=== PATIENT | female | born 1980 | race Caucasian/White ===

== ENCOUNTER 2016-11-17 21:45 | Emergency (ER) | payer SELFPAY ==
[~2016-11-17] VITALS: Ht 162.6 cm; Wt 56.0 kg
[2016-11-17 21:50] VITALS: BP 133/80; PULSE 101; RESP 14; TEMP 98.1; O2SAT 100
--- NOTE | 2016-11-17 21:59 | PD ---
HPI Chief Complaint: Altered Mental Status Time Seen by Provider: 21:49 Travel History International Travel<30 days: No Contact w/Intl Traveler<30days: No History of Present Illness HPI The patient is a 36 year old female who presents to the [facility] emergency department with a history of altered mental status noted by a friend that she was talking to on the phone prior to arrival. The friend called ambulance services and upon their arrival the patient was noted to be crouching in a corner. The patient was disoriented and appeared to be hallucinating. The patient had a generator that was on and noted to be nearby in the backyard. The patient is oriented to person, however otherwise not oriented to time, place, or situation. She denies drinking any alcohol or using any drugs. The patient's blood sugar was noted prior to arrival to be 103. The patient is able to state her name, however when she is asked other questions she answers that she knows the answer, however she will not answer the questions specifically to give an example when asked where she is currently located she says yes she knows, however she will not state where. Orientation questioning is limited as the patient is unable or is refusing to answer questions. LMP: Reportedly started today. PFSH Past Medical History Narrative Medical the patient's past medical history is reportedly none. Past Surgical History Narrative Surgical The patient's past surgical history is reportedly none. Social History Alcohol Use: No Tobacco Use: No Substance Use: No Allergies-Medications (Allergen,Severity, Reaction): Coded Allergies: No Known Allergies (Unverified , 11/17/16) Reported Meds & Prescriptions Reported Meds & Active Scripts Active No Active Prescriptions or Reported Medications Narrative Medication The patient denies taking any medications Review of Systems ROS Limitations: Poor Historian Neurologic: Positive: Change in Mentation Physical Exam Narrative General: The patient is well-developed well-nourished female in no acute distress Head and Neck exam: Head is normocephalic atraumatic. Eyes: EOMI, pupils are equal round and reactive to light. Nose: Midline septum with pink mucous membranes Mouth: Dentition unremarkable. Moist mucus membranes. Posterior oropharynx is not erythematous. No tonsillar hypertrophy. Uvula midline. Airway patent. Neck: No palpable lymphadenopathy. No nuchal rigidity. No thyromegaly. Cardiovascular: Sinus tachycardia in the low 100 without murmurs, gallops, or rubs. No pulse deficit to the extremities on simultaneous auscultation and palpation of her radial artery. Lungs: Clear to auscultation bilaterally. No wheezes, rhonchi, or rales. Abdomen: Soft, without tenderness to palpation in all 4 quadrants of the abdomen. No guarding, rebound, or rigidity. Normal bowel sounds are audible. No tenderness on palpation of McBurney's point. Extremities: No clubbing, cyanosis, or edema. 2+ pulses in all 4 extremities. No calf tenderness on palpation. Back: No spinous process tenderness to palpation. No costovertebral angle tenderness to palpation. Neurologic Exam: Cranial nerves 2-12 were intact on exam. Strength is 5/5 in all 4 extremities. No sensory deficits noted. Skin Exam: No rash noted. Intact skin that is warm and dry. Data Data Last Documented VS Vital Signs Date Time Temp Pulse Resp B/P (MAP) Pulse Ox O2 Delivery O2 Flow Rate FiO2 11/17/16 23:48 90 107/57 (74) 92 11/17/16 22:02 15 Non-Rebreather 15.00 11/17/16 21:50 98.1 Orders Orders Electrocardiogram (11/17/16 21:49) Complete Blood Count With Diff (11/17/16 21:49) Comprehensive Metabolic Panel (11/17/16 21:49) Lipase (11/17/16 21:49) Urinalysis - C+S If Indicated (11/17/16 21:49) Magnesium (Mg) (11/17/16 21:49) Ammonia (11/17/16 21:49) Thyroid Stimulating Hormone (11/17/16 21:49) Chest, Single Ap (11/17/16 21:49) Iv Access Insert/Monitor (11/17/16 21:49) Ecg Monitoring (11/17/16 21:49) Oximetry (11/17/16 21:49) Ed Urine Pregnancytest Poc (11/17/16 21:49) Drug Screen, Random Urine (11/17/16 21:49) Alcohol (Ethanol) (11/17/16 21:49) Salicylates (Aspirin) (11/17/16 21:49) Tylenol (Acetaminophen) (11/17/16 21:49) Ct Brain W/O Iv Contrast(Rout) (11/17/16 21:49) Prothrombin Time / Inr (Pt) (11/17/16 21:51) Act Partial Throm Time (Ptt) (11/17/16 21:51) Blood Gas Venous (Vbg) (11/17/16 21:45) Arterial Blood Gas (Abg) (11/17/16 22:45) Lorazepam Inj (Ativan Inj) (11/18/16 00:00) Labs Laboratory Tests Test 11/17/16 21:45 11/17/16 21:50 11/17/16 22:12 11/17/16 22:45 Blood Gas Puncture Site BY RN RT RADIAL Blood Gas Patient Temperature 98.6 98.6 Venous Blood pH 7.35 Venous Blood Partial Pressure CO2 46 mmHg Venous Blood Partial Pressure O2 28 mmHg Venous Blood HCO3 24 mmol/L Venous Blood Oxygen Saturation 44 % Venous Blood Oxygen Content 9.1 Vol % Venous Blood Base Excess -0.4 mmol/L Oxygen Delivery Device ROOM AIR ROOM AIR Blood Gas Inspired Oxygen 21 % 21 % White Blood Count 11.7 TH/MM3 Red Blood Count 4.65 MIL/MM3 Hemoglobin 15.5 GM/DL Hematocrit 44.1 % Mean Corpuscular Volume 94.9 FL Mean Corpuscular Hemoglobin 33.3 PG Mean Corpuscular Hemoglobin Concent 35.1 % Red Cell Distribution Width 13.3 % Platelet Count 339 TH/MM3 Mean Platelet Volume 7.4 FL Neutrophils (%) (Auto) 71.6 % Lymphocytes (%) (Auto) 23.8 % Monocytes (%) (Auto) 3.7 % Eosinophils (%) (Auto) 0.5 % Basophils (%) (Auto) 0.4 % Neutrophils # (Auto) 8.4 TH/MM3 Lymphocytes # (Auto) 2.8 TH/MM3 Monocytes # (Auto) 0.4 TH/MM3 Eosinophils # (Auto) 0.1 TH/MM3 Basophils # (Auto) 0.0 TH/MM3 CBC Comment DIFF FINAL Differential Comment Prothrombin Time 10.3 SEC Prothromb Time International Ratio 0.9 RATIO Activated Partial Thromboplast Time 29.6 SEC Blood Urea Nitrogen 11 MG/DL Creatinine 0.75 MG/DL Random Glucose 94 MG/DL Total Protein 7.9 GM/DL Albumin 4.3 GM/DL Calcium Level 8.5 MG/DL Magnesium Level 2.6 MG/DL Alkaline Phosphatase 69 U/L Aspartate Amino Transf (AST/SGOT) 26 U/L Alanine Aminotransferase (ALT/SGPT) 44 U/L Total Bilirubin 0.2 MG/DL Sodium Level 143 MEQ/L Potassium Level 3.8 MEQ/L Chloride Level 109 MEQ/L Carbon Dioxide Level 25.7 MEQ/L Anion Gap 8 MEQ/L Estimat Glomerular Filtration Rate 88 ML/MIN Ammonia 25 MCMOL/L Lipase 137 U/L Thyroid Stimulating Hormone 3rd Gen 1.380 uIU/ML Salicylates Level LESS THAN 1.7 MG/DL Acetaminophen Level LESS THAN 2.0 MCG/ML Ethyl Alcohol Level 317 MG/DL Urine Color COLORLESS Urine Turbidity CLEAR Urine pH 5.0 Urine Specific [place] 1.002 Urine Protein NEG mg/dL Urine Glucose (UA) NEG mg/dL Urine Ketones NEG mg/dL Urine Occult Blood NEG Urine Nitrite NEG Urine Bilirubin NEG Urine Urobilinogen LESS THAN 2.0 MG/DL Urine Leukocyte Esterase NEG Urine WBC LESS THAN 1 /hpf Urine Squamous Epithelial Cells <1 /hpf Urine Hyaline Casts 1 /lpf Microscopic Urinalysis Comment CULT NOT INDICATED Urine Opiates Screen NEG Urine Barbiturates Screen NEG Urine Amphetamines Screen NEG Urine Benzodiazepines Screen NEG Urine Cocaine Screen NEG Urine Cannabinoids Screen NEG Blood Gas HCO3 22 mmol/L Blood Gas Base Excess -2.9 mmol/L Blood Gas Oxygen Saturation 85 % Arterial Blood pH 7.36 Arterial Blood Partial Pressure CO2 40 mmHg Arterial Blood Partial Pressure O2 60 mmHG Arterial Blood Oxygen Content 17.8 Vol % Arterial Blood Carboxyhemoglobin 3.3 % Arterial Blood Methemoglobin 0.8 % Blood Gas Hemoglobin 15.0 G/DL MDM Medical Decision Making Medical Screen Exam Complete: Yes Emergency Medical Condition: Yes Medical Record Reviewed: Yes Interpretation(s) Last Impressions Head CT 11/17/162148 Signed Impressions: Service Date/Time: Friday, November 18, 2016 00:33 - CONCLUSION: Normal examination for a patient of this age. Orlin Coelho MD Chest X-Ray 11/17/162148 Signed Impressions: Service Date/Time: Thursday, November 17, 2016 22:16 - CONCLUSION: Mild infiltrate and pleural effusion of the right base. Hakan Pardo MD Differential Diagnosis Carbon monoxide toxicity, versus altered mentation related to drug ingestion, versus withdrawal syndrome, versus psychiatric disorder, versus metabolic encephalopathy, versus intracranial abnormality Narrative Course During the course of the patients emergency department visit, the patients history, examination, and differential diagnosis were reviewed with the patient. The patient had IV access obtained and blood work sent for analysis. The patient was placed on a cardiac rn with oximetry and blood pressure monitoring. An ECG was done on arrival. The patient's ECG shows a sinus tachycardia rate of 102, no acute ST segment elevation or depression. T waves are inverted in V1, QRS duration is 89 ms, QTC 396 ms. An ABG was ordered. The patient was initially provided normal saline 1 L IV fluid bolus. The patient was given Ativan 1 mg IV for agitation in order to complete her CT scan of the brain. The patients laboratory studies were reviewed and remarkable for a white count 11.7, hemoglobin 15.5, platelets 339, neutrophils 71.6, ABG reveals a carboxyhemoglobin of 3.3 therefore carbon monoxide toxicity has been ruled out. CMP is remarkable for chloride of 109, GFR of 88, magnesium 2.6, lipase 137, TSH 1.38, ammonia level XXV. PT PTT within normal limits, urine drug screen is negative, salicylate less than 1.7, acetaminophen less than 2, alcohol level CCCXVII, urinalysis is unremarkable. Radiology studies were reviewed and remarkable for a chest x-ray that shows atelectasis at the right lung base. CT scan of the brain shows a normal examination for a patient of this age. The patient will be observed in the emergency department until she has improvement of mentation and is able to walk without assistance. The patient is acutely intoxicated with alcohol. The patient on discharge will be instructed to avoid heavy alcohol use. The patient is resting comfortably and feels better, is alert and in no distress. The patients results and examination findings were discussed with the patient. The repeat examination is unremarkable and benign. The history, exam, diagnostic testing, and current condition do not suggest any significant pathology to warrant further testing, continued ED treatment, admission, or surgical evaluation at this point. The vital signs have been stable. The patient does not have uncontrollable pain, intractable vomiting, or other significant symptoms. The patient's condition is stable and appropriate for discharge. The patient will pursue further outpatient evaluation with a primary care physician or other designated or consulting physician as indicated in the discharge instructions. The patient expressed understanding and was agreeable with this plan. Diagnosis Primary Impression: Altered mental status Qualified Codes: R41.0 - Disorientation, unspecified Additional Impression: Alcohol intoxication Qualified Codes: F10.929 - Alcohol use, unspecified with intoxication, unspecified Referrals: Primary Care Physician 2 days Patient Instructions: Alcohol Intoxication (ED), General Instructions Additional Instructions: Avoid alcohol use Med/Other Pt SpecificInfo: No Change to Meds Scripts No Active Prescriptions or Reported Meds Disposition: 01 DISCHARGE HOME Condition: Stable Lianne Nguyen MD Nov 17, 2016 21:59
[2016-11-17 22:00] LABS: BLOOD GAS VENOUS BASE EXCESS -0.4 mmol/L (-2-2); BLOOD GAS VENOUS HCO3 24 mmol/L (22-26); BLOOD GAS VENOUS O2 CONTENT 9.1 Vol % (9.0-17.0); BLOOD GAS VENOUS O2 HGB SAT 44 % (70-76); BLOOD GAS VENOUS PCO2 46 mmHg (44-48); BLOOD GAS VENOUS PO2 28 mmHg (35-40); BLOOD GAS VENOUS pH 7.35 (7.360-7.400); CRITICAL VALUE YES; TEMP CORR TO 98.6
[2016-11-17 22:01] LABS: FIO2 21 %; OXYGEN DEVICE ROOM AIR; STAT YES
[2016-11-17 22:02] VITALS: RESP 15; O2SAT 100
[2016-11-17 22:33] LABS: BLOOD, URINE NEG (NEG); GLUCOSE,URINE NEG (NEG); HYALINE CAST, URINE 1 /lpf (RARE); KETONE, URINE NEG (NEG); NITRITE,URINE NEG (NEG); SQUAMOUS EPITHELIAL CELL URINE <1 /hpf (0-5); URINE COLOR COLORLESS (YELLW/STRAW)
[2016-11-17 22:34] LABS: COMMENT (UR) CULT NOT INDICATED; CULTURE IF INDICATED CULT NOT INDICATED
[2016-11-17 22:37] LABS: HEMATOCRIT 44.1 % (35.0-46.0); HEMO FLAGS DIFF FINAL; LYMPH % 23.8 % (9.0-44.0); MEAN CELL VOLUME 94.9 FL (80.0-100.0); MEAN CORPUSCULAR HEMOGLOBIN 33.3 PG (27.0-34.0); MEAN CORPUSCULAR HGB CONC 35.1 % (32.0-36.0); MONO % 3.7 % (0.0-8.0); NEUT % 71.6 % (16.0-70.0); PLATELET COUNT 339 TH/MM3 (150-450); RED BLOOD COUNT 4.65 MIL/MM3 (4.00-5.30); RED CELL DISTRIBUTION WIDTH 13.3 % (11.6-17.2); WHITE BLOOD COUNT 11.7 TH/MM3 (4.0-11.0)
[2016-11-17 22:38] LABS: AUTOMATED NEUTROPHIL # 8.4 TH/MM3 (1.8-7.7); BASOPHIL % 0.4 % (0.0-2.0); EOSINOPHIL # 0.1 TH/MM3 (0-0.4); EOSINOPHIL % 0.5 % (0.0-4.0); LYMPHOCYTE # 2.8 TH/MM3 (1.0-4.8)
--- NOTE | 2016-11-17 22:42 | RADRPT ---
EXAM DATE/TIME: 11/17/2016 22:16 [facility] COMPARISON: No previous studies available for comparison. INDICATIONS : Altered mental status. Possible carbon monoxide poison. MEDICAL HISTORY : Unobtainable. SURGICAL HISTORY : Unobtainable. ENCOUNTER: Initial ACUITY: 1 day PAIN SCORE: Non-responsive. LOCATION: Bilateral chest FINDINGS: Right hemidiaphragm is partly obscured compatible with a mild right base infiltrate. A very small rig ht pleural effusion is also possible. Left lung reasonably clear. No pneumothorax. Heart size within normal limits. CONCLUSION: Mild infiltrate and pleural effusion of the right base. Hakan Pardo MD on November 17, 2016 at 22:39 Board Certified Radiologist. This report was verified electronically.
[2016-11-17 22:44] LABS: ANION GAP 8 MEQ/L (5-15)
[2016-11-17 22:46] LABS: APTT (PATIENT) 29.6 SEC (24.3-30.1); INTERNATIONAL NORMALIZED RATIO 0.9 RATIO; PROTHROMBIN TIME - PATIENT 10.3 SEC (9.8-11.6)
[2016-11-17 22:52] LABS: BLOOD GAS BASE EXCESS -2.9 mmol/L (-2-2); BLOOD GAS CARBOXYHEMOGLOBIN 3.3 % (0-4); BLOOD GAS HCO3 22 mmol/L (22-26); BLOOD GAS METHEMOGLOBIN 0.8 % (0-2); BLOOD GAS O2 HGB SATURATION 85 % (90-100); BLOOD GAS OXYGEN CONTENT 17.8 Vol % (12.0-20.0); BLOOD GAS PCO2 40 mmHg (38-42); BLOOD GAS PO2 60 mmHG (61-120); CRITICAL VALUE YES; DRAW SITE RT RADIAL; FIO2 21 %; NUMBER OF ARTERIAL PUNCTURES 1; OXYGEN DEVICE ROOM AIR; STAT YES; TEMP CORR TO 98.6; ULNAR PULSE PRESENT
[2016-11-17 22:54] LABS: ALKALINE PHOSPHATASE 69 U/L (45-117); ALT (GPT) 44 U/L (10-53); AST (GOT) 26 U/L (15-37); BICARBONATE 25.7 MEQ/L (21.0-32.0); BLOOD UREA NITROGEN 11 MG/DL (7-18); CHLORIDE 109 MEQ/L (98-107); GLOMERULAR FILTRATION RATE 88 ML/MIN (>89); MAGNESIUM 2.6 MG/DL (1.5-2.5); POTASSIUM 3.8 MEQ/L (3.5-5.1); SODIUM (NA) 143 MEQ/L (136-145); TOTAL BILIRUBIN ADULT 0.2 MG/DL (0.2-1.0)
[2016-11-17 22:55] LABS: ACETAMINOPHEN LESS THAN 2.0 MCG/ML (10.0-30.0); ALCOHOL 317 MG/DL (0-5)
[2016-11-17 23:48] VITALS: BP 107/57; PULSE 90; O2SAT 92
[2016-11-18] MEDS ORDERED: LORazepam 2 MG/ML VIAL IV PUSH ONE
--- NOTE | 2016-11-18 01:04 | RADRPT ---
EXAM DATE/TIME: 11/18/2016 00:33 [facility] COMPARISON: No previous studies available for comparison. INDICATIONS : Altered mental status. RADIATION DOSE: 31.87 CTDIvol (mGy) MEDICAL HISTORY : None SURGICAL HISTORY : None. ENCOUNTER: Initial ACUITY: 1 day PAIN SCALE: 0/10 LOCATION: cranial TECHNIQUE: Multiple contiguous axial images were obtained of the head. Using automated exposure control and adj ustment of the mA and/or kV according to patient size, radiation dose was kept as low as reasonably a chievable to obtain optimal diagnostic quality images. DICOM format image data is available electro nically for review and comparison. FINDINGS: CEREBRUM: The ventricles are normal for age. No evidence of midline shift, mass lesion, hemorrhage or acute in farction. No extra-axial fluid collections are seen. POSTERIOR FOSSA: The cerebellum and brainstem are intact. The 4th ventricle is midline. The cerebellopontine angle i s unremarkable. EXTRACRANIAL: The visualized portion of the orbits is intact. SKULL: The calvaria is intact. No evidence of skull fracture. CONCLUSION: Normal examination for a patient of this age. Orlin Coelho MD on November 18, 2016 at 1:00 Board Certified Radiologist. This report was verified electronically.
--- NOTE | 2016-11-18 21:29 | EKG ---
Date Performed: 11/17/2016 Time Performed: 21:48:36 PTAGE: 36 years EKG: SINUS TACHYCARDIA POSSIBLE RIGHT ATRIAL ENLARGEMENT POSSIBLE LEFT ATRIAL ENLARGEMENT ABNORM AL RHYTHM ECG NO PREVIOUS TRACING DOCTOR: Zoila Roper Interpretating Date/Time 11/18/2016 21:28:27
== END 2016-11-18 02:50 | disposition home or self-care (01) ==
LOC: NEPC 21:45 → NEPB 11-18 02:50
DX: R41.0 Disorientation, unspecified (principal); F10.929 Alcohol use, unspecified with intoxication, unspecified; R00.0 Tachycardia, unspecified
CPT/HCPCS: 36600; 70450; 71010; 80053; 80307; 81001; 82140; 82805; 83690; 83735; 84443; 84703; 85025; 85610; 85730; 93005; 96374; 99285; J2060